=== PATIENT | female | born 1995 | race Hispanic/Latino ===

== ENCOUNTER 2017-05-31 16:42 | Emergency (ER) | payer OTHER ==
[~2017-05-31] VITALS: Ht 152.4 cm; Wt 90.0 kg
[2017-05-31] MEDS ORDERED: NAPROSYN500 MG PO (17:22)
[2017-05-31 17:33] VITALS: BP 131/86
== END 2017-05-31 17:38 | disposition home or self-care (01) | DRG 563 ==
LOC: ED 16:42
DX: S39.012A Strain of muscle, fascia and tendon of lower back, initial encounter (principal); X50.1XXA Overexertion from prolonged static or awkward postures, initial encounter; Y93.89 Activity, other specified; Y92.128 Other place in nursing home as the place of occurrence of the external cause

== ENCOUNTER 2023-04-01 07:31 | Emergency (ER) | payer BC ==
[~2023-04-01] VITALS: Ht 152.4 cm; Wt 99.0 kg
[~2023-04-01 07:31] MED LIST: NAPROSYN500 MG PO
[2023-04-01 08:19] LABS: URINE BILIRUBIN - DIPSTICK NEGATIVE (NEGATIVE); URINE BLOOD DIPSTICK LARGE (NEGATIVE); URINE GLUCOSE - DIPSTICK NEGATIVE (NEGATIVE); URINE KETONE NEGATIVE (NEGATIVE); URINE LEUK ESTERASE TRACE (NEGATIVE); URINE PROTEIN - DIPSTICK 100 mg/dL (NEG-TRACE); URINE SPECIFIC GRAVITY 1.025; URINE UROBILINOGEN - DIPSTICK 0.2 E.U./dL (0.2)
[2023-04-01 08:20] LABS: URINE COLOR BROWN; URINE NITRITE - DIPSTICK POSITIVE (Negative)
[2023-04-01] MEDS ORDERED: OMNI-PAC300 MG PO (08:23)
[2023-04-01 08:25] LABS: URINE BACTERIA FEW hpf; URINE RBC TNTC RBC/hpf (0-5); URINE SQUAMOUS EPITHELIAL CELL FEW EPI/hpf (0-FEW)
[2023-04-01 08:27] VITALS: BP 131/87
== END 2023-04-01 08:27 | disposition home or self-care (01) | DRG 690 ==
LOC: ED 07:31
PROVIDERS: Family Medicine
DX: N39.0 Urinary tract infection, site not specified (principal); B96.20 Unspecified Escherichia coli [E. coli] as the cause of diseases classified elsewhere